=== PATIENT | female | born 1945 | race Hispanic/Latino ===

== ENCOUNTER 2022-08-20 06:59 | Day surgery (SDC) | payer OTHER ==
[2022-08-19 11:38] LABS: Absolute Lymphocytes (CBC) 1.3 K/uL (0.7-4.9); Hematocrit 37.3 % (36.0-45.0); Lymphocytes % 11.4 % (15.3-44.8); MCV 88.4 fL (80-100); MPV 8.2 fL (7.6-11.3); RBC Red Blood Cell Count 4.22 M/uL (3.86-4.86)
[2022-08-19 11:53] LABS: Potassium 4.5 mmol/L (3.5-5.1)
[2022-08-20] MEDS ORDERED: NA CHLORIDE 0.9% 1,000 ML ONE (07:25)
[2022-08-20 08:03] VITALS: O2SAT 100
[2022-08-20] MEDS ORDERED: LIDOCAINE 1% MPF 5 ML VIAL ONE (08:53)
[2022-08-20] MEDS ORDERED: propofoL 200 MG/20 ML VIAL IV ONE ×2 (08:53)
--- NOTE | 2022-08-20 09:53 | ENDO RPT ---
[address], [address] EGD PROCEDURE REPORT EXAM DATE: 08/20/2022 PATIENT NAME: Shari Corbett MR#: [id number] BIRTHDATE: 1945 ATTENDING: Carlos Davey DR STATUS: outpatient SPORTS EDITOR: Kierra Moser RN and Bipin Rudd [facility] INDICATIONS: The patient is a 77 yr old Female here for an EGD due to GERD and epigastric pain PROCEDURE PERFORMED: EGD with biopsy for H. pylori and EGD for control of bleeding MEDICATIONS: Per Anesthesia. TOPICAL ANESTHETIC: CONSENT: The patient understands the risks and benefits of the procedure and understands that these risks include, but are not limited to: sedation, allergic reaction, infection, perforation and/or bleeding. Alternative means of evaluation and treatment include, among others: physical exam, x-rays, and/or surgical intervention. The patient elects to proceed with this endoscopic procedure. DESCRIPTION OF PROCEDURE: During intra-op preparation period all mechanical medical equipment was checked for proper function. Hand hygiene and appropriate measures for infection prevention was taken. Procedure, possible complications, and alternatives including but not limited to the possibility of bleeding, perforation, tear, infection, sepsis, need for surgery, need for blood transfusion, and anesthesia related complications were explained to the patient. After the risks, benefits and alternatives of the procedure were thoroughly explained, Informed consent was verified, confirmed and timeout was successfully executed by the treatment team. The patient was placed in the left lateral position. The patient was anesthetized with topical anesthesia. Through the anesthetized oropharyngeal area, the scope was passed without any difficulty. The EG-[id number] ([id number]) endoscope was introduced through the mouth and advanced to the third portion of the duodenum. Retroflexed views revealed no abnormalities. The gastroscope was then slowly withdrawn and removed. Multiple erosions were found in the total stomach. Resolution clip placed on bleeding biopsy site with good hemostasis Multiple biopsies were obtained and sent to pathology. With standard forceps, a biopsy was obtained and sent to pathology. A biopsy for H. pylori was taken. Moderate gastritis was found in the total stomach. Multiple biopsies were obtained and sent to pathology. With standard forceps, a biopsy was obtained and sent to pathology. A biopsy for H. pylori was taken. Bile reflux was found in the gastroesophageal junction. Duodenitis was found in the bulb and descending duodenum. With standard forceps, a biopsy was obtained and sent to pathology. A biopsy for H. pylori was taken. ADVERSE EVENTS: There were no complications. IMPRESSIONS: 1. Multiple erosions were found in the total stomach 2. Moderate gastritis was found in the total stomach 3. Bile reflux was found in the gastroesophageal junction 4. Duodenitis was found in the bulb and descending duodenum RECOMMENDATIONS: 1. acid suppression therapy 2. anti-reflux regimen 3. await biopsy results 4. follow-up: office 2 week(s) 5. avoid NSAIDS 6. follow-up of helicobacter pylori status, treat if indicated REPEAT EXAM: Carlos Davey DR eSigned: Carlos Davey DR 08/20/2022 9:53 AM cc: CPT CODES: ICD9 CODES: PATIENT NAME: Shari Corbett MR#: [id number]
--- NOTE | 2022-08-20 09:56 | ENDO RPT ---
[address], [address] COLONOSCOPY PROCEDURE REPORT EXAM DATE: 08/20/2022 PATIENT NAME: Shari Corbett MR #: [id number] BIRTHDATE: 1945 ATTENDING: Carlos Davey DR STATUS: outpatient GRINDING MACHINE OPERATOR PORTABLE: Kierra Moser RN and Bipin Rudd [facility] INDICATIONS: The patient is a 77 yr old Female here for a colonoscopy due to Positive cologuard fecal DNA test PROCEDURE PERFORMED: Colonoscopy with biopsy - cold polypectomy MEDICATIONS: Per Anesthesia. ESTIMATED BLOOD LOSS: None CONSENT: The patient understands the risks and benefits of the procedure and understands that these risks include, but are not limited to: sedation, allergic reaction, infection, perforation and/or bleeding. Alternative means of evaluation and treatment include, among others: physical exam, x-rays, and/or surgical intervention. The patient elects to proceed with this endoscopic procedure. DESCRIPTION OF PROCEDURE: During intra-op preparation period all mechanical medical equipment was checked for proper function. Hand hygiene and appropriate measures for infection prevention was taken. Procedure, possible complications, alternatives including, but not limited to possibility of bleeding, perforation, tear, infection, sepsis, need for surgery, need for blood transfusion, were explained to the patient. After the risks, benefits and alternatives of the procedure were thoroughly explained, Informed consent was verified, confirmed and timeout was successfully executed by the treatment team. The patient was placed in the left lateral position. A digital rectal exam was performed and revealed internal hemorrhoids. After appropriate level of anesthesia, the scope was passed. The EC-[id number] ([id number]) endoscope was introduced through the anus and advanced to the cecum, which was identified by both the appendix and ileocecal valve. The quality of the prep was poor. The instrument was then slowly withdrawn as the colon was fully examined. Scope withdrawal time was 15 minutes. COLON FINDINGS: Two smooth and polypoid shaped semi-pedunculated polyps measuring 1 cm in size with friable surfaces were found at the cecum and in the sigmoid colon. A polypectomy was performed using snare cautery and with cold forceps. The resection was complete, the polyp tissue was completely retrieved and sent to histology. There was moderate diverticulosis noted in the sigmoid colon with associated colonic spasm and tortuosity. No bleeding was noted from the diverticulosis. Moderate sized internal hemorrhoids were found. Retroflexed views revealed no abnormalities. The scope was then completely withdrawn from the patient and the procedure terminated. ADVERSE EVENTS: There were no complications. IMPRESSIONS: Two semi-pedunculated polyps measuring 1 cm in size were found at the cecum and in the sigmoid colon; polypectomy was performed using snare cautery and with cold forceps RECOMMENDATIONS: 1. avoid NSAIDS for 2 weeks 2. await biopsy results 3. follow-up: office 2 week(s) 4. Monitor for any evidence of rectal bleeding. 5. yearly hemoquant 6. hemorrhoidal hygiene 7. low fiber / diverticular diet RECALL: for Colonoscopy, pending biopsy results. Carlos Davey DR eSigned: Carlos Davey DR 08/20/2022 9:56 AM cc: CPT CODES: ICD9 CODES: PATIENT NAME: Shari Corbett MR#: [id number]
[2022-08-20 11:00] VITALS: BP 115/74
[2022-08-20 11:03] VITALS: TEMP 97.5
== END 2022-08-20 10:47 | disposition home or self-care (01) ==
LOC: OR 06:59
PROVIDERS: ATTEND Surgery
PROC: 0DB98ZX Excision of Duodenum, Via Natural or Artificial Opening Endoscopic, Diagnostic (ICD-10-PCS; 2022-08-20)
PROC: 0DB78ZX Excision of Stomach, Pylorus, Via Natural or Artificial Opening Endoscopic, Diagnostic (ICD-10-PCS; 2022-08-20)
PROC: 0DB68ZX Excision of Stomach, Via Natural or Artificial Opening Endoscopic, Diagnostic (ICD-10-PCS; 2022-08-20)
PROC: 0DBH8ZX Excision of Cecum, Via Natural or Artificial Opening Endoscopic, Diagnostic (ICD-10-PCS; principal; 2022-08-20 08:45)
PROC: 0DBN8ZX Excision of Sigmoid Colon, Via Natural or Artificial Opening Endoscopic, Diagnostic (ICD-10-PCS; 2022-08-20 08:45)
DX: R19.5 Other fecal abnormalities (principal); K29.50 Unspecified chronic gastritis without bleeding; D12.5 Benign neoplasm of sigmoid colon; K21.9 Gastro-esophageal reflux disease without esophagitis; R10.13 Epigastric pain; K29.80 Duodenitis without bleeding; K25.9 Gastric ulcer, unspecified as acute or chronic, without hemorrhage or perforation
CPT/HCPCS: 85025; 80048; 36415; 88312; 82947; 88305; 45385; 45380; 43239; 43255; J2704 ×2; J2001; J7030